=== PATIENT | male | born 1965 | race African-American/Black ===

== ENCOUNTER 2021-03-18 12:45 | Emergency (ER) | payer OTHER ==
[2021-03-18 12:52] VITALS: TEMP 98.6; BMI 30.5
[2021-03-18 14:31] VITALS: BP 150/87; PULSE 86
== END 2021-03-18 14:49 | disposition home or self-care (01) ==
LOC: JER 12:45
DX: M25.562 Pain in left knee (principal)
CPT/HCPCS: 73562-TC-LT-FY; 99283-25

== ENCOUNTER 2021-07-31 14:10 | Emergency (ER) | payer OTHER ==
[2021-07-31 14:24] VITALS: TEMP 98.1; BMI 31.0
[2021-07-31] MEDS ORDERED: LIDOCAINE 5% TOPICAL PATCH TP ONE (15:22)
[2021-07-31] MEDS ORDERED: ACETAMINOPHEN 325 MG TABLET (FP) PO ONE (15:22)
[2021-07-31] MEDS ORDERED: LIDOCAINE 5% TOPICAL PATCH ONE (15:28)
[2021-07-31] MEDS ORDERED: ACETAMINOPHEN 325 MG TABLET (FP) ONE (15:28)
[2021-07-31 16:38] VITALS: BP 165/90; PULSE 98
[2021-07-31] MEDS ORDERED: LIDOCAINE PATCH REMOVAL MC ONE (22:00)
== END 2021-07-31 16:39 | disposition home or self-care (01) ==
LOC: JER 14:10
DX: S20.212A Contusion of left front wall of thorax, initial encounter (principal); W01.0XXA Fall on same level from slipping, tripping and stumbling without subsequent striking against object, initial encounter
CPT/HCPCS: 71046-TC-FY; 71101-TC-LT-FY; 73030-TC-LT-FY; 73060-TC-LT-FY; 99285-25

== ENCOUNTER 2021-12-26 11:46 | Emergency (ER) | payer OTHER ==
[2021-12-26 12:18] VITALS: BP 155/94; PULSE 95; RESP 17; TEMP 97.9; BMI 29.8
[2021-12-26] MEDS ORDERED: IBUPROFEN 600 MG TABLET (FP) PO ONE ×2 (14:14→14:15)
[2021-12-26] MEDS ORDERED: DIPHTH,PERTUSS(ACELL),TET 0.5 ML DISP.SYRIN IM ONE ×2 (14:14→14:15)
== END 2021-12-26 14:35 | disposition home or self-care (01) ==
LOC: JERFT 11:46
PROC: 3E0234Z Introduction of Serum, Toxoid and Vaccine into Muscle, Percutaneous Approach (ICD-10-PCS; principal; 2021-12-26)
DX: L03.011 Cellulitis of right finger (principal)
CPT/HCPCS: 87070; 87205; 99284-25

== ENCOUNTER 2022-01-23 11:52 | Emergency (ER) | payer OTHER ==
[2022-01-23 11:58] VITALS: TEMP 98.1; BMI 29.8
[2022-01-23] MEDS ORDERED: ALBUTEROL SO4 2.5/IPRATROPIUM 0.5 INH SOL 3 ML VIAL.NEB. NEB ONE ×2 (12:58→13:10)
[2022-01-23] MEDS ORDERED: FLUORESCEIN NA 1 EA STRIP OD ONE ×2 (13:01→14:32)
[2022-01-23] MEDS ORDERED: TETRACAINE 0.5% HCL 0.6ML DROPPER.BOTTLE OD ONE (13:01)
[2022-01-23] MEDS ORDERED: predniSONE 20 MG TABLET (UD) PO ONE (13:05)
[2022-01-23] MEDS ORDERED: FLUORESCEIN NA 1 EA STRIP ONE ×2 (13:11→14:35)
[2022-01-23] MEDS ORDERED: predniSONE 20 MG TABLET (UD) ONE (13:11)
[2022-01-23 13:40] VITALS: BP 153/100; PULSE 98; RESP 19
[2022-01-23] MEDS ORDERED: TETRACAINE 0.5% OPHTH SOLN 2 ML BOTTLE ONE (14:13)
[2022-01-23 15:15] LABS: BASO % 0.4 % (0-2.0); EOS % 1.1 % (0-4.5); HEMATOCRIT 50.9 % (35.4-49); HEMOGLOBIN 17.6 GM/dL (11.7-16.9); MCH 35.3 pg (25.7-33.7); MCHC 34.7 g/dl (32.0-35.9); MEAN CELL VOLUME 101.8 fl (80-96); MEAN PLT VOLUME 8.1 fl (7.5-11.1); MONO % 9.4 % (3.8-10.2); NEUT % 62.1 % (42.8-82.8); PLATELET COUNT 192 10^3/uL (134-434); RDW 12.8 % (11.9-15.9); WHITE BLOOD COUNT 8.5 K/mm3 (4.0-10.0)
[2022-01-23 15:26] LABS: CALCIUM 9.3 mg/dL (8.5-10.1)
[2022-01-23 15:28] LABS: ALBUMIN 3.6 g/dl (3.4-5.0)
[2022-01-23 15:30] LABS: CREATININE 0.6 mg/dL (0.55-1.3)
[2022-01-23 15:32] LABS: BILIRUBIN,TOTAL 0.7 mg/dL (0.2-1); TOT PROT 7.4 g/dl (6.4-8.2)
== END 2022-01-23 18:27 | disposition home or self-care (01) ==
LOC: JER 11:52
PROC: 3E0F7GC Introduction of Other Therapeutic Substance into Respiratory Tract, Via Natural or Artificial Opening (ICD-10-PCS; principal; 2022-01-23)
DX: R07.0 Pain in throat (principal); H10.31 Unspecified acute conjunctivitis, right eye
CPT/HCPCS: 0241U-QW; 36415; 70491-TC; 71045-TC-FY; 80053; 84484; 85025; 87651; 93005; 93010; 99285-25; Q9967

== ENCOUNTER 2022-02-02 20:08 | Emergency (ER) | payer OTHER ==
[2022-02-02 20:22] VITALS: BP 156/93; PULSE 107; RESP 18; TEMP 97.8; BMI 29.8
== END 2022-02-02 20:55 | disposition left against medical advice (07) ==
LOC: JER 20:08
DX: F10.19 Alcohol abuse with unspecified alcohol-induced disorder (principal)
CPT/HCPCS: 99281-25